=== PATIENT | female | born 1990 | race Caucasian/White ===

== ENCOUNTER → 2016-09-18 | Outpatient (CLI) | payer BC ==
[~2016-09-18] MED LIST: BCPILLS PO; BUPR-79 PO; CHLO25CA10 PO; LRT5 PO; MOME6000 NAE; ONDA4TAB10 SL; OXYM0.056 NAE; PRT/20 PO
== END | disposition home or self-care (01) ==
LOC: C.PAPS 09:30
PROVIDERS: ATTEND Obstetrics & Gynecology
DX: Z01.419 Encounter for gynecological examination (general) (routine) without abnormal findings (principal); R87.616 Satisfactory cervical smear but lacking transformation zone

== ENCOUNTER 2016-12-23 05:49 | Emergency (ER) | payer BC ==
[~2016-12-23] VITALS: Ht 160 cm; Wt 83.6 kg
[~2016-12-23 05:49] MED LIST changes: -CHLO25CA10 PO; -MOME6000 NAE; -ONDA4TAB10 SL; -OXYM0.056 NAE; -PRT/20 PO
[2016-12-23 05:51] VITALS: TEMP 36.8; Ht 160 cm; Wt 83.6 kg
[2016-12-23] MEDS ORDERED: LORAZEPAM 2 MG/ML 1 ML VIAL IV STA (06:06)
[2016-12-23] MEDS ORDERED: ONDANSETRON INJ 2 MG/ML 2 ML VIAL IV STA (06:06)
--- NOTE | 2016-12-23 06:07 | EMERGENCY ROOM VISIT NOTE ---
History Report prepared by Meraryibjason: José Mcgrath Under the Supervision of: Dr. Jt Elena D.O. First contact with patient: 05:59 Chief Complaint: OTHER COMPLAINT Stated Complaint: TREMORS,RAPID HEARTBEAT,DEHYDRATION History of Present Illness The patient is a 26 year old female who presents to the Emergency Room with complaints of persistent tachycardia since she woke up at approximately 0300 this morning. The patient also complains of anxiety, tremors, and generalized weakness. The patient is concerned that she is withdrawing from alcohol. She states that she has been addicted to alcohol for the past two years. She has been trying to wean off of alcohol for one week. She had half a shot HAND LACER because she thought that she was going to pass out. The patient was last drunk six days ago. She also has family history of alcohol maternally. She does not want to go to rehab. The patient has also been worked up over her sick grandmother. The patient denies suicidal ideations. Source of History: patient Onset: 0300 today Position: other (heart) Quality: other (tachycardic) Timing: other (persistent) Associated Symptoms: + weakness Review of Systems See HPI for pertinent positives and negatives. A total of ten systems were reviewed and were otherwise negative. Past Medical & Surgical Social History Problems: (1) Alcohol abuse Family History FH: alcoholism Social History Smoking Status: Never Smoker Occupation Status: employed Current/Historical Medications Scheduled Control Pills ( Control Pills), 1 TAB PO DAILY Chlordiazepoxide (Librium), 50 MG PO Q6 Mometasone Furoate (Nasal) (Mometasone Furoate), 1 SPRAY VITA DAILY Ondasetron Odt (Zofran Odt), 4 MG SL Q6H Oxymetazoline Hcl (Afrin), 1-2 SPRAY VITA DAILY Pantoprazole (Protonix), 20 MG PO BID Allergies Coded Allergies: Sulfa Drugs (Unverified Allergy, Mild, VOMITING, 12/23/16) Sulfamethoxazole (Unverified Allergy, Mild, VOMITING, 12/23/16) Trimethoprim (Unverified Allergy, Mild, VOMITING, 12/23/16) Physical Exam Vital Signs Date Time Temp Pulse Resp B/P Pulse Ox O2 Delivery O2 Flow Rate FiO2 12/23/16 06:16 99 18 130/92 99 Room Air 12/23/16 06:15 99 Room Air 12/23/16 06:15 99 Room Air 12/23/16 06:12 102 12/23/16 05:51 36.8 121 20 143/79 98 Room Air Physical Exam GENERAL: Awake, alert, well-appearing, in no distress HENT: Normocephalic, atraumatic. Oropharynx unremarkable. EYES: Normal conjunctiva. Sclera non-icteric. NECK: Supple. No nuchal rigidity. FROM. No JVD. RESPIRATORY: Clear to auscultation. CARDIAC: Tachycardic, normal rhythm. Extremities warm and well perfused. Pulses equal. ABDOMEN: Soft, non-distended. No tenderness to palpation. No rebound or guarding. No masses. RECTAL: Deferred. MUSCULOSKELETAL: Chest examination reveals no tenderness. The back is symmetrical on inspection without obvious abnormality. There is no CVA tenderness to palpation. No joint edema. LOWER EXTREMITIES: Calves are equal size bilaterally and non-tender. No edema. No discoloration. NEURO: Normal sensorium. No sensory or motor deficits noted. SKIN: No rash or jaundice noted. PSYCH: Appears anxious. Medical Decision & Procedures Laboratory Results 12/23/16 06:10 Red Blood Count 4.50, Mean Corpuscular Volume 96.0, Mean Corpuscular Hemoglobin 32.9, Mean Corpuscular Hemoglobin Concent 34.3, Mean Platelet Volume 10.9, Neutrophils (%) (Auto) 67.9, Lymphocytes (%) (Auto) 19.5, Monocytes (%) (Auto) 10.9, Eosinophils (%) (Auto) 1.0, Basophils (%) (Auto) 0.5, Neutrophils # (Auto ) 5.93, Lymphocytes # (Auto) 1.70, Monocytes # (Auto) 0.95, Eosinophils # (Auto ) 0.09, Basophils # (Auto) 0.04 12/23/16 06:10 Test 12/23/16 06:10 White Blood Count 8.73 K/uL (4.8-10.8) Red Blood Count 4.50 M/uL (4.2-5.4) Hemoglobin 14.8 g/dL (12.0-16.0) Hematocrit 43.2 % (37-47) Mean Corpuscular Volume 96.0 fL (80-100) Mean Corpuscular Hemoglobin 32.9 pg (25-34) Mean Corpuscular Hemoglobin Concent 34.3 g/dl (32-36) Platelet Count 297 K/uL (130-400) Mean Platelet Volume 10.9 fL (7.4-10.4) Neutrophils (%) (Auto) 67.9 % Lymphocytes (%) (Auto) 19.5 % Monocytes (%) (Auto) 10.9 % Eosinophils (%) (Auto) 1.0 % Basophils (%) (Auto) 0.5 % Neutrophils # (Auto) 5.93 K/uL (1.4-6.5) Lymphocytes # (Auto) 1.70 K/uL (1.2-3.4) Monocytes # (Auto) 0.95 K/uL (0.11-0.59) Eosinophils # (Auto) 0.09 K/uL (0-0.5) Basophils # (Auto) 0.04 K/uL (0-0.2) RDW Standard Deviation 45.5 fL (36.4-46.3) RDW Coefficient of Variation 13.1 % (11.5-14.5) Immature Granulocyte % (Auto) 0.2 % Immature Granulocyte # (Auto) 0.02 K/uL (0.00-0.02) Anion Gap 18.0 mmol/L (3-11) Est Creatinine Clear Calc Drug Dose 128.0 ml/min Estimated GFR () 138.6 Estimated GFR (Non- 119.6 BUN/Creatinine Ratio 8.7 (10-20) Calcium Level 9.9 mg/dl (8.5-10.1) Direct Bilirubin 0.4 mg/dl (0-0.2) Aspartate Amino Transf (AST/SGOT) 244 U/L (15-37) Alanine Aminotransferase (ALT/SGPT) 167 U/L (12-78) Albumin 4.4 gm/dl (3.4-5.0) Ethyl Alcohol mg/dL 30.0 mg/dl (0-3) Laboratory results reviewed by me Medications Administered Medications (Trade) Dose Ordered Sig/David Route Start Time Stop Time Status Last Admin Dose Admin Sodium Chloride (Nss 1000ml) 1,000 ml @ 999 mls/hr Q1H1M IV 12/23/16 06:15 01/22/17 06:14 12/23/16 06:14 999 MLS/HR Ondansetron HCl (Zofran Inj) 4 mg NOW STAT IV 12/23/16 06:06 12/23/16 06:07 DC 12/23/16 06:14 4 MG Lorazepam (Ativan Inj) 1 mg NOW STAT IV 12/23/16 06:06 12/23/16 06:07 DC 12/23/16 06:14 1 MG ED Course 0600: The patient was evaluated in room A2. A complete history and physical exam was performed. 0606: Ativan 1 mg IV, Zofran 4 mg IV. 0615: NSS 1000 ml @ 999 mls/hr. 0645: Reassessed the patient. She is feeling much improved. HR down to 92, BP 130. The patient is comfortable being discharged. Medical Decision Differential diagnosis includes alcohol dependence, alcohol abuse, alcohol withdrawal, anxiety. Patient started on IV fluids patient given Zofran and Ativan. Patient does not want inpatient rehabilitation for alcohol. I will treat her symptoms a component of this is more anxiety. Patient has no evidence of delirium tremens. Impression Primary Impression: Anxiety Additional Impression: Alcohol abuse Scribe Attestation The scribe's documentation has been prepared under my direction and personally reviewed by me in its entirety. I confirm that the note above accurately reflects all work, treatment, procedures, and medical decision making performed by me. Departure Information Dispostion Home / Self-Care Prescriptions Chlordiazepoxide (Librium) 25 Mg Cap 50 MG PO Q6 for 3 Days, #24 CAP Prov: Jt Elena, DO 12/23/16 Ondasetron Odt (ZOFRAN ODT) 4 Mg Tab 4 MG SL Q6H for Nausea, #10 TAB Prov: Jt Elena, DO 12/23/16 Referrals No Doctor, Assigned (PCP) Forms HOME CARE DOCUMENTATION FORM, IMPORTANT VISIT INFORMATION, WORK / SCHOOL INSTRUCTIONS Patient Instructions Alcohol Abuse - [facility], Anxiety Disorder, My [facility] Health Problem Qualifiers
[2016-12-23 06:15] VITALS: O2SAT 99
[2016-12-23] MEDS ORDERED: SODIUM CHLORIDE 0.9% 1000ML 1,000 ML IV SCH (06:15)
[2016-12-23] MEDS ORDERED: CHLO25CA10 PO (06:23)
[2016-12-23] MEDS ORDERED: ONDA4TAB10 SL (06:23)
[2016-12-23 06:29] LABS: BASO % 0.5 %; BASO ABS # 0.04 K/uL (0-0.2); COMPLETE YES; HEMATOCRIT 43.2 % (37-47); IG% 0.2 %; LYMPH % 19.5 %; MEAN CORPUSCULAR HEMOGLOBIN 32.9 pg (25-34); MEAN CORPUSCULAR HGB CONC 34.3 g/dl (32-36); MEAN PLATELET VOLUME 10.9 fL (7.4-10.4); MONO % 10.9 %; NEUT % 67.9 %; PLATELET COUNT 297 K/uL (130-400); WHITE BLOOD COUNT 8.73 K/uL (4.8-10.8)
[2016-12-23] MEDS ORDERED: PRT/20 PO (06:43)
[2016-12-23] MEDS ORDERED: MOME6000 NAE (06:47)
[2016-12-23] MEDS ORDERED: OXYM0.056 NAE (06:47)
[2016-12-23] MEDS ORDERED: BCPILLS PO (06:47)
[2016-12-23 06:49] LABS: CREATININE 0.67 mg/dl (0.60-1.20)
[2016-12-23 06:50] LABS: BUN/CREATININE RATIO 8.7 (10-20); CALCIUM 9.9 mg/dl (8.5-10.1); POTASSIUM 3.4 mmol/L (3.5-5.1)
[2016-12-23 07:05] VITALS: BP 124/85; PULSE 91; O2SAT 97
== END 2016-12-23 07:07 | disposition home or self-care (01) ==
LOC: C.EDB 05:50 → C.EDA 07:07
DX: F41.9 Anxiety disorder, unspecified (principal); F10.10 Alcohol abuse, uncomplicated; Z79.3 Long term (current) use of hormonal contraceptives; Z79.899 Other long term (current) drug therapy

== ENCOUNTER 2017-02-20 07:03 | Emergency (ER) | payer BC ==
[~2017-02-20] VITALS: Ht 160 cm; Wt 83.8 kg
[~2017-02-20 07:03] MED LIST changes: -BUPR-79 PO; -LRT5 PO; +MOME6000 NAE; +ONDA4TAB10 SL; +OXYM0.056 NAE; +PRT/20 PO
[2017-02-20 07:07] VITALS: TEMP 36.8; Ht 160 cm; Wt 83.8 kg
[2017-02-20] MEDS ORDERED: SODIUM CHLORIDE 0.9% 1000ML 1,000 ML IV STA ×2 (07:13→07:58)
[2017-02-20] MEDS ORDERED: ONDANSETRON INJ 2 MG/ML 2 ML VIAL IV STA (07:15)
[2017-02-20 07:42] LABS: BASO % 0.7 %; BASO ABS # 0.03 K/uL (0-0.2); COMPLETE YES; EOS % 0.7 %; HEMATOCRIT 42.3 % (37-47); IG% 0.2 %; LYMPH % 45.2 %; LYMPH ABS # 1.96 K/uL (1.2-3.4); MEAN CELL VOLUME 95.7 fL (80-100); MEAN CORPUSCULAR HEMOGLOBIN 32.1 pg (25-34); MEAN CORPUSCULAR HGB CONC 33.6 g/dl (32-36); MEAN PLATELET VOLUME 10.2 fL (7.4-10.4); MONO % 10.6 %; NEUT % 42.6 %; PLATELET COUNT 334 K/uL (130-400); RED BLOOD COUNT 4.42 M/uL (4.2-5.4); WHITE BLOOD COUNT 4.34 K/uL (4.8-10.8)
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
[2017-02-20] MEDS ORDERED: PROMETHAZINE HCL INJ 12.5 MG in SODIUM CHLORIDE 0.9% 50ML 50 ML IV STA (07:57)
[2017-02-20 07:59] LABS: URINE APPEARANCE CLOUDY (CLEAR); URINE BILIRUBIN NEG (NEG); URINE COLOR YELLOW; URINE EPITHELIAL CELL AUTO >30 /lpf (0-5); URINE NITRITE NEG (NEG); URINE PH 5.5 (4.5-7.5); URINE SPECIFIC GRAVITY 1.015 (1.000-1.030); UROBILINOGEN NEG (NEG); ZZUR CULT IF INDIC CLEAN CATCH YES
[2017-02-20 08:00] LABS: BUN/CREATININE RATIO 5.3 (10-20); CALCIUM 9.3 mg/dl (8.5-10.1); CREATININE 0.75 mg/dl (0.60-1.20); POTASSIUM 3.2 mmol/L (3.5-5.1)
[2017-02-20 08:04] LABS: MANUAL MICROSCOPIC REQUIRED? NO; REVIEW REQ? NO
--- NOTE | 2017-02-20 08:59 | EMERGENCY ROOM VISIT NOTE ---
ED Visit Note First contact with patient: 07:10 Resident Physician Supervision Note: I interviewed and examined the patient. Discussed with Dr. Lara and agree with findings and plan as documented in the note. Any exceptions or clarifications are listed here: [None] Documented By: Gutierrez Manzano
[2017-02-20] MEDS ORDERED: ALUMINUM/MAGNESIUM SUSP 30 ML UDC PO STA (09:40)
[2017-02-20] MEDS ORDERED: PANTOprazole SOD 40 MG TAB PO STA (09:40)
[2017-02-20 09:59] VITALS: BP 134/98; PULSE 105; O2SAT 97
[2017-02-20] MEDS ORDERED: CHLORDIAZEPOXIDE 25 MG CAP PO STA ×2 (10:14→10:20)
[2017-02-20] MEDS ORDERED: CHLO25CA10 PO (10:26)
== END 2017-02-20 10:29 | disposition home or self-care (01) ==
LOC: C.EDB 07:04 → C.EDA 10:29
DX: K29.20 Alcoholic gastritis without bleeding (principal); E87.6 Hypokalemia; R11.2 Nausea with vomiting, unspecified; R19.7 Diarrhea, unspecified; F10.129 Alcohol abuse with intoxication, unspecified; Z87.891 Personal history of nicotine dependence; Z79.3 Long term (current) use of hormonal contraceptives; Z81.1 Family history of alcohol abuse and dependence